=== PATIENT | male | born 1940 | race Caucasian/White ===

== ENCOUNTER 2025-07-19 09:10 | Outpatient (CLI) | payer OTHER, SELFPAY ==
--- NOTE | ~2025-07-19 | MR_ITS ---
EXAMINATION: MR thoracic spine wo con DATE: 07/19/2025 10:05 INDICATION: Low back pain TECHNIQUE: Magnetic resonance imaging (MRI) of the thoracic spine was performed without intravenous contrast. Sagittal localizer T1-weighted FSE of the cervical spine was obtained. Thoracic spine sequences included sagittal T2-weighted FSE, sagittal T1-weighted FSE, sagittal T2-weighted FS FSE, and axial T2-weighted FSE. COMPARISON: None FINDINGS: No acute or aggressive bony or soft tissue process seen in the thoracic spine. The thoracic spinal cord appears normal in signal with no discrete medullary cord lesions or gross myelopathic changes. Moderately severe diffuse degenerative changes involving disc spaces and posterior elements including approximately 2 mm of anterolisthesis of T1 on T2. No large disc herniations or spinal canal stenosis. IMPRESSION: 1. No gross acute or aggressive bone or soft tissue process. The thoracic spinal cord is normal in signal. 2. Advanced degenerative changes throughout the thoracic spine including mild anterolisthesis T1 and T2; no large disc herniations or spinal canal stenosis. Reviewed, dictated and finalized at location A. ER HELPER IMPRESSION: 1. No gross acute or aggressive bone or soft tissue process. The thoracic spina l cord is normal in signal. 2. Advanced degenerative changes throughout the thoracic spine including mild a nterolisthesis T1 and T2; no large disc herniations or spinal canal stenosis.
--- NOTE | ~2025-07-19 | MR_ITS ---
EXAMINATION: MR lumbar spine wo con DATE: 07/19/2025 10:09 INDICATION: Lower back pain TECHNIQUE: Magnetic resonance imaging (MRI) of the lumbar spine was performed without intravenous contrast. Sequences included sagittal T2-weighted FSE, sagittal T2-weighted FS FSE, sagittal T1-weighted FSE, and axial T2-weighted FSE. COMPARISON: None FINDINGS: 2 mm retrolisthesis L2 on L3, 5 mm anterolisthesis L4 on L5 and 4 mm retrolisthesis L5 on S1. Vertebral body heights are normal. Schmorl's nodes along the inferior endplates of L1 and L3. Severe disc height loss with fibrofatty degenerative endplate changes at L5-S1. Marrow signal is otherwise normal. Moderate disc height loss at L4-L5 and mild disc height loss at T12-L1 through L3-L4. The conus medullaris terminates at L1. There is normal signal in the caudal spinal cord. Paravertebral soft tissues are unremarkable. The following disc levels are specifically discussed: T12-L1: Disc is mildly bulging. There is mild bilateral facet joint osteoarthritis. There is mild right neural foraminal stenosis. There is minimal central canal stenosis. L1-L2: Disc is bulging with annular fissure. There is mild bilateral facet joint osteoarthritis. There is mild to moderate bilateral neural foraminal stenosis. There is mild central canal stenosis. L2-L3: Disc is bulging with annular fissure. There is mild bilateral facet joint osteoarthritis. There is moderate right and mild to moderate left neural foraminal stenosis. There is mild to moderate central canal stenosis including narrowing at the left and right lateral recesses. L3-L4: Disc is bulging with annular fissure. There is moderate left and severe right facet joint osteoarthritis. There is moderate bilateral neural foraminal stenosis. There is mild central canal stenosis. L4-L5: Disc is bulging with annular fissure. There is severe bilateral facet joint osteoarthritis. There is moderate bilateral neural foraminal stenosis. There is mild to moderate central canal stenosis including narrowing of the left and right lateral recesses. L5-S1: Disc is bulging with annular fissure. There is mild to moderate bilateral facet joint osteoarthritis. There is moderate right and mild to moderate left neural foraminal stenosis. There is mild central canal stenosis with mild narrowing of the right lateral recess. IMPRESSION: 1. Moderate to severe lower lumbar and lumbosacral predominant spondylosis. Reviewed, dictated and finalized at location A. SAMPLER
--- OUTSIDE RECORDS SUMMARY | 2025-07-19 10:17 | XMS_ITS | Clinical Summary ---
Author Organization [facility] Address [address] [place] [address] Care Team Providers Care Rn Palliative Care Name Role Phone Unavailable Primary Care Provider Unavailabl e Social History Tobacco Use Types Packs/Day Years Used Date Smoking Tobacco: Never Assessed Sex and Gender Information Value Date Recorded Sex Assigned at Not on file Legal Sex Male 1:13 PM CDT Gender Identity Not on file Sexual Orientation Not on file Plan of Treatment Health Maintenance Due Date Last Done Comments DIABETES ANNUAL FOOT EXAM 1959 DIABETES MICROALBUMIN ANNUAL SCREEN 1959 LDL CHOLESTEROL ANNUAL 1959 DTAP/TDAP/TD VACCINES (1 - Tdap) 03/14/2011 03/13/20 11, 04/12/2001 PNEUMOCOCCAL VACCINE 50+ YEA RS (2 of 2 - PPSV23, PCV20, or PCV21) 06/12/2015 04/17/2015, 09/30/2011 , 08/12/2005 RSV VACCINE (60+ or ) (1 - 1-dose 75+ series) 2016 DIABETES HBA1C Q 6 MONTHS 06/11/2023 12/10/2022 DIABETES ANNUAL RETINAL EXAM 03/08/202405/2023, 03/08/2023, 02/22/2023, Additional history exists INFLUENZA VACCINE (#1) 2025 , 05/24/2021, 05/10/2020, Additional history exists COVID-19 Vaccine (2024-2 6 season) 2025 07/16/2022, 07/05/2021, 10/27/2020, Additional history exists ZOSTER VACCINE Completed 03/31/2021, 04/0 08/2020, 05/08/2014 Insurance [facility]
--- OUTSIDE RECORDS SUMMARY | 2025-07-19 10:17 | XMS_ITS | Clinical Summary ---
Author Organization [facility] Address [facility] [place] [address] Care Team Providers Care Paper Box Maker Name Role Phone No, Physician Primary Care Provider [phone] Miscellaneous, Not In File Unavailable Unava ilable Allergies Active Allergy Reactions Criticality Noted Date Comments Gabapentin Unknown 01/05/2019 Ropinirole Unknown 01/05/2019 Medications alprostadil (MUSE) 1,000 mcg pellet Insert 1,000 mcg into urethra as needed for erectile dysfunction use no more than 3 times per week Active ascorbic acid (VITAMIN C) 500 mg tablet,chewable Take 500 mg by mouth daily Active nitroglycerin (NITROSTAT) 0.[address] 0.4 mg under the tongue every 5 (five) minutes as needed for chest pain Active pantoprazole DR (PROTONIX) 40 mg EC tablet Take 40 mg by mouth 2 (two) times a day Active carboxymethylce llulose (REFRESH TEARS) 0.5 % ophthalmic solution Administer 1 drop into both eyes as needed Active pravastatin (PRAVACHOL) 40 mg tablet Take 40 mg by mouth nightly Active aspirin 81 mg enteric coated tablet Take 81 mg by mouth nightly Active multivitamin capsule Take 1 capsule by mouth daily Active fish oil-dha-epa 1,200-144-216 mg capsule Take 1 capsule by mouth 2 (two) times a day Active Active Problems Problem Noted Date Diagnosed Date Syncope, unspecified syncope type 09/21/2022 Primary hypertension 09/21/2022 Gastroesophageal reflux disease without esophagi tis 09/21/2022 Acute renal insufficiency 09/21/2022 Neutrophilic leukocytosis 09/21/2022 Coronary artery disease invo lving [place] coronary artery of [place] heart 09/21/2022 History of gallstones 04/09/2022 Overview (04/09/2022): Added automatically from request for surgery [id number] Abdominal pain 04/09/2022 Overview (04/09/2022): Added automatically from request for surgery [id number] Choledocholithiasis 04/09/2022 Overview (04/09/2022): Added automatically from request for surgery [id number] Tinnitus of both ears 01/05/2019 Assessment & Plan (01/05/2019 2:41 PM CDT): Tinnitus mgmt discussed. Tinnitus I discussed with the patient that tinnitus is typically a result of sensorineural hearing loss. The brainstem replaces the missing auditory nerve input with the abnormal signal. Initial effective techniques for dealing with tinnitus include using white noise (masking) in quiet, hearing aids if sensorineural loss is significant and patient is willing. Other interventions such as herbal medications (gingko, melatonin) can be tried although there is no definitive evidence to support their use. Cognitive behavioral therapy or neuromodulation through daily repetitive mental tasks have also been tried with some benefit- information on these methods was given to the patient. Sensorineural hearing loss (SNHL), bilateral 04/2019 Assessment & Plan (01/05/2019 2:41 PM CDT): Continue amplification Palpitations 04/12/2012 Hypercholesterolemia 03/17/2012 Gout 03/17/2012 Immunizations Immunization Administration Dates Next Due Influenza, Unspecified 05/14/2022 Surgical History Surgery Date Site/Laterality Comments CAROTID STENT HEMORROIDECTOMY HERNIA REPAIR CHOLECYSTECTOMY 03/30/2022 - 04/29/2022 Medical History Medical History Date Comments Allergy Hypertension Gastric ulcer Acid reflux Ear problems HL (hearing loss) Tinnitus COPD (chronic obstructive pulmonary disease) Sleep apnea Diverticulitis Arthritis Neuropathy Family History Medical History Relation Name Comments No Known Problems Father No Known Problems Mother Relation Name Status Comments Father Mother Social History Tobacco Use Types Packs/Day Years Used Date Smoking Tobacco: Former Smokeless Tobacco: Never Tobacco Cessation:Counseling Given: Not Answered AUDIT-C Answer Date Recorded Q1: How often do you have a drink containing alc ohol? 2-3 times a week 09/21/2022 Q2: How many drinks containi ng alcohol do you have on a typical day when you are drinking? 3 or 4 09/21/2022 Q3: How often do you have si x or more drinks on one occasion? Less than monthly 09/21/2022 Personal Safety Answer Date Recorded Getting School Help Needed Not on file 10/23 Sex and Gender Information Value Date Recorded Sex Assigned at Not on file Legal Sex Male 12:40 AM SHOEMAKING FINISHER Gender Identity Not on file Sexual Orientation Not on file Last Filed Vital Signs Vital Sign Reading Time Taken Comments Blood Pressure 138/76 09/23/2022 11:43 AM SHOEMAKING FINISHER Pulse 69 09/23/2022 11:43 AM SHOEMAKING FINISHER Temperature 36.8 C (98.2 F) 09/23/2022 11:43 AM SHOEMAKING FINISHER Respiratory Rate 20 09/23/2022 11:43 AM SHOEMAKING FINISHER Oxygen Saturation 96% 09/23/2022 11:43 AM SHOEMAKING FINISHER Inhaled Oxygen Concentration - - Weight 95 kg (209 lb 7 oz) 09/21/2022 5:11 PM CS T Height 172.7 cm (5' 8) 09/21/2022 5:11 PM SHOEMAKING FINISHER Body Mass Index 31.84 09/21/2022 5:11 PM SHOEMAKING FINISHER Plan of Treatment Health Maintenance Due Date Last Done Comments Depression Screening 1941 DTaP/Tdap/Td Vaccine (1 - Tdap) 1952 Hepatitis B Screening 1959 Pneumococcal vaccine 65+ (1 of 2 - PCV) 1960 Zoster Vaccine (1 of 2) 1960 Well Visit 65+ 2006 Fall Risk Assessment 09/23/2023 09/23/2022 Influenza Vaccine (#1) 2025 05/14/2022 Insurance MEDICARE Member Subscriber Plan / Payer (Ef fective 2006-Present) Name:Vic Vilchis Jr. Member ID:[id number] Relation to Subscriber:Self Name:Vic Vilchis JrShirin Subscriber ID:[id number] Payer ID:[id number] Group ID:Not on file Type:MEDICARE TRADITIONAL Address: [place] [phone] [facility] MEDICARE [facility] MEDICARE [facility] Advance Directives For more information, please contact: [phone] * Full Code (Latest Code Status on File) Date Activated Date Inactivated Comments 09/21/2022 1:38 PM 09/23/2022 5:37 PM * Full Code Date Activated Date Inactivated Comments 04/10/2022 2:38 PM 04/10/2022 9:17 PM Care Teams Paper Box Maker Relationship Specialty Start Date End Date No, Physician PCP - General 11/29/18 Miscellaneous, Not In File 09/23/22"
--- OUTSIDE RECORDS SUMMARY | 2025-07-19 10:18 | XMS_ITS | Patient Health Record ---
Author Organization [facility] Address [address] [place], [place] [id number] Care Team Providers Care Caramel Candy Maker Name Role Phone JENN [place] Unavailable [phone] Reason For Referral No Information Social History Social History Additional Details Category Social Info Options Details Migrated Social History Migrated Social History Alcohol intake : , Smoking Status : Never smoked , History of tobacco use : Plan Of Treatment No Information Insurance Providers Payer Name Payer Address Payer Phone Subscriber Number Group Number Insured Name Patient Relationship to Insured Coverage Start Date Coverage End Date [employer] PAYER ID [id number] [address] [place] [address] [id number] MARIELLE DASH Self - patient is the insured
--- OUTSIDE RECORDS SUMMARY | 2025-07-19 10:19 | XMS_ITS | Patient Health Record ---
Author Organization [facility] Address [address] [place] [address] Reason For Referral No Information Plan Of Treatment No Information
== END 2025-07-19 09:11 | disposition home or self-care (01) ==
DX: Z01.89 Encounter for other specified special examinations (principal); M47.896 Other spondylosis, lumbar region; M51.34 Other intervertebral disc degeneration, thoracic region
CPT/HCPCS: 72146; 72148